=== PATIENT | female | born 1940 | race Caucasian/White ===

== ENCOUNTER → 2021-05-22 | Day surgery (SDC) | payer MEDICARE ==
--- NOTE | 2021-05-21 09:53 | PCM.PREANE ---
Preanesthetic Assessment - Procedure Proposed Procedure: Right Hip Arthroplasty - Anesthesia/Transfusion/Family Hx Anesthesia History: Prior Anesthesia Reaction Type of Anesthesia Reaction: Excessive Nausea/Vomiting Family History of Anesthesia Reaction: No Transfusion History: No Prior Transfusion(s) Intubation History: Unknown - Review of Systems General: No Symptoms Pulmonary: No Symptoms (COVID: February 2020- symptoms resolved), Cough (chronic- improved) Cardiovascular: No Symptoms (Diastolic Dysfunction, hyperlipidemia/HTN) Gastrointestinal: No Symptoms (GERD/hiatal hernia), Diarrhea Neurological: No Symptoms, Dizziness, Headache (occasionally), Tingling (mostly on left foot/sciatic nerve problems.) Other: Reports: Easy Bruising, Depression, Anxiety - Physical Assessment NPO Status Date: 05/21/21 NPO Status Time: 23:00 Vital Signs: HR: 76 Sat: 95% Temp: 98.2 B/P: 151/75 ResP: 16 Height: 1.68 m Weight: 76 kg ASA Class: 3 Mental Status: Alert & Oriented x3 Airway Class: Mallampati = 2 Dentition: Reports: Normal Dentition, [place](s), Caries Thyro-Mental Finger Breadths: 3 Mouth Opening Finger Breadths: 3 ROM/Head Extension: Full Lungs: Clear to Auscultation, Normal Respiratory Effort Cardiovascular: Regular Rate, Regular Rhythm, No Murmurs - Lab Values: All labs reviewed and noted and within acceptable ranges to proceed with scheduled procedure. - Imaging/EKG Impressions: CXR: marked scoliosis noted. EKG: SR, PAC's, left axis deviaton, abnormal R-wave progression/rate=82 - Allergies Allergies/Adverse Reactions: Allergies Allergy/AdvReac Type Severity Reaction Status Date / Time Sulfa (Sulfonamide Allergy Nausea Verified 05/21/21 13:59 Antibiotics) - Anesthesia Plan Pre-Op Medication Ordered: None - Acknowledgements Anesthesia Type Planned: Spinal Pt an Appropriate Candidate for the Planned Anesthesia: Yes Alternatives and Risks of Anesthesia Discussed w Pt/Guardian: Yes Pt/Guardian Understands and Agrees with Anesthesia Plan: Yes PreAnesthesia Questionnaire - HOME MEDS Home Medications: Home Meds Aspirin [Aspirin EC] 325 mg PO BID #70 tab 05/21/21 [Rx] Cholecalciferol (Vitamin D3) [Vitamin D3] 1,000 unit PO DAILY 05/21/21 [History] Cyanocobalamin (Vitamin B-12) [Vitamin B-12] 1,000 mcg PO DAILY 05/21/21 [History] Hyoscyamine [Hyomax-SL] 0.125 mg PO QID 05/21/21 [History] LORazepam [Ativan] 0.5 mg PO Q12H PRN 05/21/21 [History] Lactobacillus Combo No.10 [Probiotic] 1 cap PO DAILY 05/21/21 [History] Losartan/Hydrochlorothiazide [Losartan-HCTZ 100-25 MG] 1 tab PO DAILY 05/21/21 [History] Montelukast [Singulair] 10 mg PO DAILY 05/21/21 [History] Pantoprazole Sodium [Protonix] 20 mg PO DAILY 05/21/21 [History] Potassium Chloride 30 mg PO DAILY 05/21/21 [History] Sertraline [Zoloft] 25 mg PO DAILY 05/21/21 [History] amLODIPine [Norvasc] 5 mg PO DAILY 05/21/21 [History] atorvaSTATin [Lipitor] 10 mg PO DAILY 05/21/21 [History] oxyCODONE 5 - 10 mg PO Q4H PRN #40 tab 05/21/21 [Rx] - CURRENT (IN HOUSE) MEDS Current Meds: Current Medications Morphine Sulfate 8 mg/Epinephrine HCl 0.3 mg/Cefuroxime Sodium 750 mg/Ketorolac Tromethamine 30 mg/Sodium Chloride 7.9 ml 0 mg .XX ASDIRECTED PRN PRN Reason: Pain Stop: 05/22/21 16:00 Lactated Ringer's (Ringers, Lactated) 1,000 mls @ 125 mls/hr IV ASDIRECTED JHONY Stop: 05/22/21 23:00 Lidocaine/Sodium Bicarbonate (Lidocaine 1%/Sod Bicarbonate In Ns 8.4% 1 Ml Syringe) 0.25 ml IDERM ONETIME PRN PRN Reason: Prior to IV Start Stop: 05/22/21 18:00 Sodium Chloride (Sodium Chloride 0.9% 10 Ml Syringe) 10 ml FLUSH ASDIRECTED PRN PRN Reason: Keep Vein Open Stop: 05/22/21 18:00
[~2021-05-22] MED LIST: HYDROmorphone 0.5 MG/0.5 ML Syringe IVPUSH PRN; Ketamine 500 mg/10 ML MDV ONE; Ketorolac 15 MG/ML SDV ONE; Lactated Ringers 1,000 ML IV SCH; Lactated Ringers 1,000 ML ONE; Lidocaine 1%/Sod Bicarbonate in NS 8.4% 1 ML Syringe IDERM PRN; Midazolam 1 MG/ML 2 ML SDV ONE; Morphine 8 MG, EPINEPHrine 0.3 MG, Cefuroxime 750 MG, Ketorolac 30 MG, Sodium Chloride ... PRN; Ondansetron 4 MG/2 ML SDV IVPUSH PRN; Ondansetron 4 MG/2 ML SDV ONE; Propofol 200 MG/20 ML SDV ONE; Scopolamine 1.5 MG Transdermal Patch TRDERM SCH; Sodium Chloride 0.9% 10 ML Syringe FLUSH PRN; Vancomycin 1 GM SDV ONE; ceFAZolin 1 GM Vial ONE; diphenhydrAMINE 50 MG/ML SDV IVPUSH PRN; ePHEDrine 50 MG/ML SDV IVPUSH PRN; ePHEDrine 50 MG/ML SDV ONE; fentaNYL 100 MCG/2 ML SDV IVPUSH PRN; fentaNYL 100 MCG/2 ML SDV ONE; oxyCODONE 5 MG Tab PO ONE; oxyCODONE 5 MG Tab PO PRN
--- NOTE | 2021-05-22 10:35 | PCM.POSTAN ---
POST ANESTHESIA ASSESSMENT - MENTAL STATUS Mental Status: Alert - VITAL SIGNS Vital Signs: Last Vital Signs Temp 36.9 C 05/22/21 10:25 Pulse 82 05/22/21 10:25 Resp 13 05/22/21 10:25 BP 99/43 L 05/22/21 10:25 Pulse Ox 94 L 05/22/21 10:25 - RESPIRATORY Respiratory Status: Respiratory Rate WNL, Airway Patent, O2 Saturation Stable, Supplemental Oxygen - CARDIOVASCULAR CV Status: Pulse Rate WNL, Blood Pressure Stable - GASTROINTESTINAL GI Status: No Symptoms - POST OP HYDRATION Hydration Status: Adequate & Stable
--- NOTE | 2021-05-22 11:08 | CR ---
Pelvis and right hip: AP view of the pelvis was obtained as well as crosstable lateral views of the right hip. Comparison: Prior CT right hip study of 05/09/21. Right hip prosthesis is noted. Components are aligned. Soft tissue air is seen around the right hip. No acute osseous abnormality is appreciated. Impression: 1. Satisfactory postoperative radiographic appearance of recently placed right hip prosthesis. Diagnostic code #2
--- NOTE | 2021-06-06 06:52 | PCM.OPNOTE ---
- General Post-Op/Procedure Note Date of Surgery/Procedure: 05/22/21 Operative Procedure(s): right total hip arthroplasty with [employer] robot[employer] Pre Op Diagnosis: right hip osteoarthrosis Post-Op Diagnosis: Same Anesthesia Technique: Local, MAC, Spinal Primary Surgeon: Anthony Salas Anesthesia Provider: Anuradha Monroy Government Instructor: Sindy Moya Government Instructor: Tammy Cortes EBL in mLs: 150 Complications: None Condition: Good Free Text/Narrative:: 54 4 28+0
--- NOTE | 2021-06-06 08:08 | OR ---
DATE OF OPERATION: 05/22/2021 SURGEON: Antohny Salas MD OPERATION PERFORMED: Right hip total hip arthroplasty with [employer] robot[employer]. PREOPERATIVE DIAGNOSIS: Right hip osteoarthrosis. POSTOPERATIVE DIAGNOSIS: Right hip osteoarthrosis. ANESTHESIA: Local MAC with spinal. ANESTHESIA PROVIDER: Anuradha Monroy CRNA ASSISTANTS: Sindy Moya PA-C, and Tammy Cortes LPN ESTIMATED BLOOD LOSS: 150 mL. COMPLICATIONS: None. CONDITION: Stable. IMPLANTS: 1. [employer]edy size 54 mm solid Tritanium II acetabular cup. 2. [place] size 4 Accolade II stem. 3. [place] size 28, +0/42 MDM components. DESCRIPTION OF PROCEDURE: The patient was identified in the preoperative holding area where proper site was marked, identified by the surgeon. The patient was taken back to the operating theater, where after adequate anesthesia, the patient was placed in a left lateral decubitus position. Axillary roll was placed. Pegs were then placed and well padded. The patient's gluteal fold was parallel to the floor. Right hip was then sterilely prepped and draped in the usual sterile fashion. OR time-out was performed. The patient received 2 g of IV Ancef. At this time, 3 small incisions were made over the iliac crest, 3 fingerbreadths posterior to the ASIS. Three 4.0 Schanz pins were then placed and [employer] robotic array was placed down onto the iliac crest. At this time, a posterior incision was made, centered over the greater trochanter. This was taken down to the IT band and gluteal fascia, which was incised along the incisional length. Charnley retractor was then placed. Checkpoint was placed in the greater trochanter and leg lengths were then taken using the [employer] robotic. At this time, takedown of the short external rotators and capsulotomy was performed down to the lesser trochanter. Hip was then dislocated. Neck cut was completed and found to be adequate. Anterior and posterior acetabular retractors were placed. Checkpoint was then placed on the superior rim of the acetabulum. 15 points were then obtained intra-articularly in the acetabulum, 15 more were taken extra- articular on the acetabulum. Other 3 checkpoints on the radial and the iliac crest were then taken as well. The 54 mm reamer was then placed on the [employer] robotic arm and the plan was undertaken until all green was gone from the [employer] robotic plan for 45 degrees of abduction and 20 degrees of anteversion. The reamer was then removed. The size 54 mm cup was then placed onto the [employer] robotic arm. It was impacted into place at 45 degrees of abduction and 20 degrees of anteversion and was found to be in proper position. The MDM liner was then impacted into place. Attention was turned to the femur. Box chisel was used out laterally. Starter awl was placed down the canal. Starting with 0 broach, I was able to broach up to a size 4, which was found to be rotationally and vertically stable. Trial implants with a 28, +0 were then placed. The patient had adequate sabianist of leg lengths and was stable throughout range of motion. Bone hook was used to dislocate the hip. At this time, the trial implants were removed. Size 4 Accolade II stem was impacted in place. The 28, +0 MDM components were constructed on the back table and then impacted on the stem. Hip was then relocated. #5 Ethibond suture was used for closure of the short external rotators and capsule. 1 L pulse lavage irrigation with Ancef was then irrigated through the hip along with 400 mL Irrisept irrigation. Topical tranexamic acid and vancomycin powder were applied. Periarticular injection was completed. #2 barbed suture was then used for closure of the IT band and gluteal fascia. 2-0 Vicryl was used subcutaneously, and Prineo was used for skin closure. The patient had a sterile soft dressing applied and sent to PACU in stable condition. MMODAL /[id number]
== END | disposition home or self-care (01) ==
LOC: JD.SDS 06:45
PROVIDERS: ATTEND Orthopaedic Surgery
DX: M16.11 Unilateral primary osteoarthritis, right hip (principal); I10 Essential (primary) hypertension; E78.00 Pure hypercholesterolemia, unspecified; K21.9 Gastro-esophageal reflux disease without esophagitis; F41.8 Other specified anxiety disorders; R05.3 Chronic cough; F41.9 Anxiety disorder, unspecified; Z79.899 Other long term (current) drug therapy; Z88.0 Allergy status to penicillin; Z88.2 Allergy status to sulfonamides; Z98.890 Other specified postprocedural states; Z90.49 Acquired absence of other specified parts of digestive tract; M54.30 Sciatica, unspecified side; Z79.01 Long term (current) use of anticoagulants
CPT/HCPCS: 27130; 36415; 73501; 85610; 85730; 86850; 86900; 86901; 97110; 97116; 97161; A9270; C1713; C1776; J0171; J0690; J0697; J1885; J2250; J2270; J2370; J2405; J2704; J3010; J3370; J7120; 01214; 99100